=== PATIENT | male | born 1975 | race Caucasian/White ===

== ENCOUNTER 2019-09-03 10:22 | Emergency (ER) | payer MEDICAID ==
[~2019-09-03] VITALS: Ht 182.9 cm; Wt 100.0 kg
[2019-09-03 10:25] VITALS: Ht 182.9 cm; Wt 100.0 kg
[2019-09-03] MEDS ORDERED: PERCOCET 10-321 EAC1 PO (14:14)
[2019-09-03] MEDS ORDERED: ANALPRAM HC 2.530 GM RC (14:15)
[2019-09-03 14:30] VITALS: BP 130/59
== END 2019-09-03 14:31 | disposition home or self-care (01) ==
LOC: D.ER 10:22
DX: K64.5 Perianal venous thrombosis (principal)